=== PATIENT | female | born 1945 | race Caucasian/White ===

== ENCOUNTER 2018-03-16 13:43 | Day surgery (SDC) | payer MEDICARE ==
[2018-03-14 11:23] LABS: BASOPHILS % (AUTO) 0.6 % (0-1); EOSINOPHILS # (AUTO) 0.2 X10'3 (0-0.9); EOSINOPHILS % (AUTO) 3.2 % (0-6); HEMATOCRIT 44.7 % (35.0-45.0); HEMOGLOBIN 15.2 g/dl (12.0-16.0); LYMPHOCYTES # (AUTO) 2.7 X10'3 (1.1-4.8); LYMPHOCYTES % (AUTO) 35.1 % (21-51); MEAN CORPUSCULAR HEMOGLOBIN 31.3 PG (27.0-31.0); MEAN CORPUSCULAR VOLUME 91.9 FL (78-98); MEAN PLATELET VOLUME 6.4 FL (7.4-10.4); MONOCYTES # (AUTO) 0.4 X10'3 (0-0.9); MONOCYTES % (AUTO) 5.7 % (2-12); NEUTROPHILS # (AUTO) 4.3 X10'3 (1.8-7.7); NEUTROPHILS % (AUTO) 55.4 % (42-75); PLATELET COUNT 500 X10'3 (140-440); RED BLOOD COUNT 4.87 X10'6 (4.20-5.60); RED CELL DISTRIBUTION WIDTH 13.5 % (11.5-14.5); WHITE BLOOD COUNT 7.8 X10'3 (4.5-11.0)
[2018-03-14 11:38] LABS: PARTIAL THROMBOPLASTIN TIME 28 SECONDS (22-32); PROTHROMBIN TIME 10.3 SECONDS (9.0-12.0)
[2018-03-14 11:46] LABS: ALBUMIN 3.6 G/DL (3.4-5.0); ANION GAP 8 (8-16); BLOOD UREA NITROGEN 15 MG/DL (7-18); CALCIUM 8.9 MG/DL (8.5-10.1); CHLORIDE 105 MMOL/L (99-107); CREATININE 1.15 MG/DL (0.40-0.90); GLUCOSE 103 MG/DL (70-104); POTASSIUM 3.9 MMOL/L (3.5-5.1); SODIUM 139 MMOL/L (135-145); TOTAL CARBON DIOXIDE 26.1 MMOL/L (24-32); eGFR 46 ML/MIN
[2018-03-16] VITALS (8 sets, daily range): BP systolic 108–133; BP diastolic 50–73
[~2018-03-16] VITALS: Ht 160 cm; Wt 68.4 kg
[~2018-03-16 13:43] MED LIST: LOSA100T13 PO; NOR5T PO; PROG100C6 PO; ROSU10TA PO; ZOLE4INF IV
[2018-03-16] MEDS ORDERED: LORazepam 0.5 MG tablet PO PRN (14:00)
[2018-03-16] MEDS ORDERED: diphenhydrAMINE 25mg capsule PO PRN (14:00)
[2018-03-16] MEDS ORDERED: normal saline 1000ml 1,000 ML IV SCH (14:00)
[2018-03-16] MEDS ORDERED: GABA-532 PO (14:06)
[2018-03-16] MEDS ORDERED: PARO40TA PO (14:06)
[2018-03-16] MEDS ORDERED: TEMA15CA5 PO (14:06)
[2018-03-16] MEDS ORDERED: ROSU40TA PO (14:06)
[2018-03-16] MEDS ORDERED: LOSA100T28 PO (14:06)
[2018-03-16] MEDS ORDERED: midazolam 2 mg/2 ml injection ONE (16:34)
[2018-03-16] MEDS ORDERED: lidocaine 1%/epinephrine 1:100,000 injection 50ml vial ONE (16:34)
[2018-03-16] MEDS ORDERED: iohexol 350MG/ML 100ml bottle IV ONE (16:34)
[2018-03-16] MEDS ORDERED: fentaNYL/PF 50MCG/1 ML 2ML syringe ONE (16:34)
[2018-03-16] MEDS ORDERED: iohexol 350 MG/ML 50ML vial IV ONE (17:21)
[2018-03-16] MEDS ORDERED: ondansetron/PF 4mg/2ml inj IV PRN (18:10)
[2018-03-16] MEDS ORDERED: OXAZEpam 15mg capsule PO PRN (18:10)
[2018-03-16] MEDS ORDERED: HYDROcodone/acetaminophen 10/325mg tab PO PRN (18:10)
[2018-03-16] MEDS ORDERED: proCHLORperazine 10 MG/2 ml inj IV PRN (18:10)
[2018-03-16] MEDS ORDERED: HYDROcodone/acetaminophen 5mg/325mg tablet PO PRN (18:10)
== END 2018-03-16 19:38 | disposition home or self-care (01) ==
LOC: SSTAY O 13:43
PROVIDERS: ATTEND Internal Medicine Interventional Cardiology
DX: I25.810 Atherosclerosis of coronary artery bypass graft(s) without angina pectoris (principal); J44.9 Chronic obstructive pulmonary disease, unspecified; I44.4 Left anterior fascicular block; M79.7 Fibromyalgia; I10 Essential (primary) hypertension; E78.5 Hyperlipidemia, unspecified; K21.9 Gastro-esophageal reflux disease without esophagitis; M06.9 Rheumatoid arthritis, unspecified; I25.2 Old myocardial infarction; Z90.49 Acquired absence of other specified parts of digestive tract; Z87.891 Personal history of nicotine dependence; Z90.13 Acquired absence of bilateral breasts and nipples; Z85.3 Personal history of malignant neoplasm of breast; Z95.1 Presence of aortocoronary bypass graft; Z79.891 Long term (current) use of opiate analgesic; Z79.899 Other long term (current) drug therapy; Z98.890 Other specified postprocedural states
CPT/HCPCS: 36415; 80048; 85025; 85610; 85730; 93005; 93461; 99152; 99153; A6257; C1769; J1644; J2250; J3010; J3490; J7030; Q0163; Q9967; 93459; A4620

== ENCOUNTER 2022-02-20 05:32 | Day surgery (SDC) | payer MEDICARE ==
[2022-02-13 15:41] LABS: BASOPHILS # (AUTO) 0.1 X10'3 (0-0.2); BASOPHILS % (AUTO) 0.8 % (0-1); EOSINOPHILS # (AUTO) 0.2 X10'3 (0-0.9); EOSINOPHILS % (AUTO) 3.5 % (0-6); LYMPHOCYTES % (AUTO) 30.6 % (21-51); MEAN CORPUSCULAR HEMOGLOBIN 30.7 PG (27.0-31.0); MEAN CORPUSCULAR HGB CONC 33.2 g/dL (33.0-36.5); MEAN CORPUSCULAR VOLUME 92.3 FL (78-98); MONOCYTES # (AUTO) 0.4 X10'3 (0-0.9); MONOCYTES % (AUTO) 5.9 % (2-12); NEUTROPHILS # (AUTO) 3.9 X10'3 (1.8-7.7); NEUTROPHILS % (AUTO) 59.2 % (42-75); PRE OP HEMATOCRIT 43.8 % (35.0-45.0); PRE OP HEMOGLOBIN 14.6 g/dL (12.0-16.0); PRE OP PLATELET COUNT 364 X10'3 (140-440); RED BLOOD COUNT 4.75 X10'6 (4.20-5.60); RED CELL DISTRIBUTION WIDTH 12.6 % (11.5-14.5)
[2022-02-13 16:01] LABS: ALBUMIN 3.6 G/DL (3.4-5.0); ALBUMIN/GLOBULIN RATIO 1.2 (1.1-1.5); ALKALINE PHOSPHATASE 77 IU/L (46-116); BLOOD UREA NITROGEN 15 MG/DL (7-18); BUN/CREATININE RATIO 16.1 (6.6-38.0); CALCIUM 8.9 MG/DL (8.5-10.1); CHLORIDE 105 MMOL/L (99-107); CREATININE 0.93 MG/DL (0.40-0.90); PRE OP ALT 20 U/L (30-65); PRE OP ANION GAP 9 (8-16); PRE OP AST 18 U/L (10-37); PRE OP BILIRUB, TOTAL 0.6 MG/DL (0.0-1.0); PRE OP GLUCOSE 141 MG/DL (70-104); PRE OP POTASSIUM 3.4 MMOL/L (3.4-5.1); PRE OP SODIUM 144 MMOL/L (135-145); TOTAL CARBON DIOXIDE 29.8 MMOL/L (24-32); TOTAL PROTEIN 6.7 G/DL (6.4-8.2); eGFR 58 ML/MIN
[~2022-02-20] VITALS: Ht 157.5 cm; Wt 63.5 kg
[2022-02-20 05:30] VITALS: BP 158/92
[~2022-02-20 05:32] MED LIST changes: -NOR5T PO; +PARO40TA PO; -PROG100C6 PO; -ROSU10TA PO; +ROSU40TA PO; +TEMA15CA5 PO; -ZOLE4INF IV; +ceFAZolin inj. 2,000 MG in dextrose 5%-water 100 ML IV ONE; +famotidine 20mg tablet PO ONE; +ringers solution, lacted 1,000 ML IV SCH
[2022-02-20] MEDS ORDERED: BUPIVAcaine/PF 2.5mg/ml (0.25%) 10ml vial ONE (06:46)
[2022-02-20] MEDS ORDERED: LIDOcaine 0.5% (5mg/ml) 50ml vial ONE (06:46)
[2022-02-20] MEDS ORDERED: hydrALAZINE 20mg/ml inj. IV PRN (07:00)
[2022-02-20] MEDS ORDERED: ringers solution, lacted 1,000 ML IV SCH (07:00)
[2022-02-20] MEDS ORDERED: ondansetron/PF 4mg/2ml inj IV PRN (07:00)
[2022-02-20] MEDS ORDERED: morphine 2 MG/ML inj. syringe IV PRN (07:00)
[2022-02-20] MEDS ORDERED: acetaminophen 1,000mg/100ml IV 100 ML IV PRN (07:00)
[2022-02-20] MEDS ORDERED: proCHLORperazine 10 MG/2 ml inj IV PRN (07:00)
[2022-02-20] MEDS ORDERED: morphine 4 MG/ML inj SYRINge IV PRN (07:00)
[2022-02-20] MEDS ORDERED: fentaNYL/PF 50MCG/1 ML 2ML syringe IV PRN ×2 (07:00)
[2022-02-20] MEDS ORDERED: meperidine/PF 25mg/ml syringe IV PRN (07:00)
[2022-02-20] MEDS ORDERED: labetalol 20mg/4ml (5mg/ml) syringe IV PRN (07:00)
[2022-02-20] MEDS ORDERED: fentaNYL/PF 50MCG/1 ML 2ML syringe ONE (07:02)
[2022-02-20] MEDS ORDERED: midazolam 1 mg/ML 2ml injection ONE (07:05)
[2022-02-20 07:36] VITALS: BP 158/93
--- NOTE | 2022-02-20 07:36 | NUR ---
Received from OR via [facility] , accompanied by Anesthesiologist ALIS and report given by Anesthesiolgist. PATIENT WITH 20G PIV IN LRFT UE RUNNING LR AT 100. DENIES PAIN LEFT ELBOW WRAPPED IN LANE BANDAGE THAT IS CDI. + RADIAL PULSE PRESENT. NO DRAINAGE TO DRESSING VSS. Addendum: 02/20/22 at 8905 by Nehemias Stanley RN, RN Amended: Links added.
[2022-02-20] MEDS ORDERED: propofol inj 20 ML IV ONE (07:39)
[2022-02-20 07:40] VITALS: BP 150/81
[2022-02-20 07:50] VITALS: BP 162/98
[2022-02-20 08:00] VITALS: BP 151/90
[2022-02-20 08:10] VITALS: BP 148/88
--- NOTE | 2022-02-20 08:16 | NUR ---
ALL DISCHARGE CRITERIA HAS BEEN MET. VSS, PAIN AT A TOLERABLE LEVEL, VOIDING AND ABLE TO SAFELY AMBULATE AND TRANSFER SELF. IV TAKEN OUT WITHOUT ANY COMPLICATIONS. ALL DISCHARGE INSTRUCTIONS COVERED WITH PATIENT AND ALL QUESTIONS ANSWERED. PATIENT TAKEN OUT VIA WHEELCHAIR TO PERSONAL VEHICLE WHERE FAMILY/FRIEND DROVE PATIENT HOME. AMBULATED, DRANK FLUIDS AND VOIDED. DAUGHTER BRAULIO COMING TO TAKE PATIENT HOME. Addendum: 02/20/22 at 0820 by Nehemias Stanley RN, RN Amended: Links added.
== END 2022-02-20 08:16 | disposition home or self-care (01) ==
LOC: PAS 05:32
PROVIDERS: ATTEND Orthopaedic Surgery Hand Surgery
DX: G56.22 Lesion of ulnar nerve, left upper limb (principal); M19.011 Primary osteoarthritis, right shoulder; M19.071 Primary osteoarthritis, right ankle and foot; M16.11 Unilateral primary osteoarthritis, right hip; J45.909 Unspecified asthma, uncomplicated; I10 Essential (primary) hypertension; I25.2 Old myocardial infarction; Z79.01 Long term (current) use of anticoagulants; Z79.899 Other long term (current) drug therapy; Z90.49 Acquired absence of other specified parts of digestive tract; Z90.10 Acquired absence of unspecified breast and nipple; Z98.890 Other specified postprocedural states; Z87.891 Personal history of nicotine dependence; Z95.1 Presence of aortocoronary bypass graft; Z85.3 Personal history of malignant neoplasm of breast
CPT/HCPCS: 36415; 64718; 80053; 82948; 85025; 93005; A6222; J0690; J2250; J2704; J3010; J3490; J7030; J7060; J7120; Z7506; Z7512; A4215; A6449

== ENCOUNTER 2022-12-31 12:51 | Emergency (ER) | payer MEDICARE ==
[~2022-12-31] VITALS: Ht 152.4 cm; Wt 62.3 kg
[~2022-12-31 12:51] MED LIST changes: +PARO-154 PO; -PARO40TA PO; -ceFAZolin inj. 2,000 MG in dextrose 5%-water 100 ML IV ONE; -famotidine 20mg tablet PO ONE; -ringers solution, lacted 1,000 ML IV SCH
[2022-12-31 13:18] LABS: BASOPHILS # (AUTO) 0.1 X10'3 (0-0.2); BASOPHILS % (AUTO) 0.7 % (0-1); EOSINOPHILS # (AUTO) 0.3 X10'3 (0-0.9); EOSINOPHILS % (AUTO) 4.1 % (0-6); HEMATOCRIT 45.6 % (35.0-45.0); HEMOGLOBIN 14.9 g/dl (12.0-16.0); LYMPHOCYTES # (AUTO) 2.4 X10'3 (1.1-4.8); LYMPHOCYTES % (AUTO) 28.6 % (21-51); MEAN CORPUSCULAR HEMOGLOBIN 30.8 PG (27.0-31.0); MEAN CORPUSCULAR HGB CONC 32.8 g/dL (33.0-36.5); MEAN CORPUSCULAR VOLUME 93.9 FL (78-98); MEAN PLATELET VOLUME 6.8 FL (7.4-10.4); MONOCYTES # (AUTO) 0.6 X10'3 (0-0.9); MONOCYTES % (AUTO) 6.7 % (2-12); NEUTROPHILS # (AUTO) 5.1 X10'3 (1.8-7.7); NEUTROPHILS % (AUTO) 59.9 % (42-75); PLATELET COUNT 337 X10'3 (140-440); RED BLOOD COUNT 4.85 X10'6 (4.20-5.60); RED CELL DISTRIBUTION WIDTH 13.7 % (11.5-14.5); WHITE BLOOD COUNT 8.5 X10'3 (4.5-11.0)
[2022-12-31 13:33] LABS: APTT 28 SECONDS (22-32)
[2022-12-31 13:35] LABS: ALANINE AMINOTRANSFERASE 23 U/L (12-78); ALBUMIN 3.9 G/DL (3.4-5.0); ALBUMIN/GLOBULIN RATIO 1.2 (1.1-1.5); ALKALINE PHOSPHATASE 83 IU/L (46-116); ANION GAP 8 (8-16); ASPARTATE AMINO TRANSFERASE 25 U/L (10-37); BILIRUBIN,TOTAL 0.6 MG/DL (0.1-1.0); BLOOD UREA NITROGEN 19 MG/DL (7-18); BUN/CREATININE RATIO 20.2 (10.0-20.0); CALCIUM 9.7 MG/DL (8.5-10.1); CHLORIDE 104 MMOL/L (99-107); CREATININE 0.94 MG/DL (0.40-0.90); GLUCOSE 92 MG/DL (70-104); POTASSIUM 4.1 MMOL/L (3.5-5.1); SODIUM 142 MMOL/L (135-145); TOTAL CARBON DIOXIDE 29.6 MMOL/L (24-32); TOTAL PROTEIN 7.1 G/DL (6.4-8.2); eGFR 57 ML/MIN
[2022-12-31 13:42] LABS: MAGNESIUM 2.2 MG/DL (1.5-2.4)
[2022-12-31] MEDS ORDERED: NITR0.4T51 SL (16:20)
[2022-12-31 16:26] VITALS: BP 173/99
== END 2022-12-31 16:30 | disposition home or self-care (01) ==
LOC: ER 12:51
DX: R07.89 Other chest pain (principal); I10 Essential (primary) hypertension; E78.00 Pure hypercholesterolemia, unspecified; J45.909 Unspecified asthma, uncomplicated; K21.9 Gastro-esophageal reflux disease without esophagitis; Z90.49 Acquired absence of other specified parts of digestive tract
CPT/HCPCS: 36415; 71045; 80053; 83735; 83880; 84484; 85025; 85610; 85730; 93005; 99285

== ENCOUNTER 2023-07-26 10:54 | Outpatient (CLI) | payer MEDICARE ==
[~2023-07-26 10:54] MED LIST changes: +IODIXANOL 320 MG/ML INFUS..BTL 100ML IV ONE
[2023-07-26 11:45] LABS: APTT 28 SECONDS (22-32); PROTHROMBIN TIME 10.6 SECONDS (9.0-12.0)
[2023-07-26 11:48] LABS: BASOPHILS # (AUTO) 0.1 X10'3 (0-0.2); BASOPHILS % (AUTO) 0.9 % (0-1); EOSINOPHILS # (AUTO) 0.4 X10'3 (0-0.9); EOSINOPHILS % (AUTO) 4.8 % (0-6); HEMATOCRIT 46.1 % (35.0-45.0); HEMOGLOBIN 15.6 g/dl (12.0-16.0); LYMPHOCYTES # (AUTO) 2.3 X10'3 (1.1-4.8); LYMPHOCYTES % (AUTO) 28.7 % (21-51); MEAN CORPUSCULAR HEMOGLOBIN 31.2 PG (27.0-31.0); MEAN CORPUSCULAR HGB CONC 33.8 g/dL (33.0-36.5); MEAN CORPUSCULAR VOLUME 92.2 FL (78-98); MONOCYTES # (AUTO) 0.6 X10'3 (0-0.9); MONOCYTES % (AUTO) 6.7 % (2-12); NEUTROPHILS # (AUTO) 4.8 X10'3 (1.8-7.7); NEUTROPHILS % (AUTO) 58.9 % (42-75); PLATELET COUNT 393 X10'3 (140-440); RED BLOOD COUNT 4.99 X10'6 (4.20-5.60); RED CELL DISTRIBUTION WIDTH 13.6 % (11.5-14.5); WHITE BLOOD COUNT 8.2 X10'3 (4.5-11.0)
[2023-07-26 11:59] LABS: ALANINE AMINOTRANSFERASE 28 U/L (12-78); ALBUMIN 3.8 G/DL (3.4-5.0); ALKALINE PHOSPHATASE 89 IU/L (46-116); ANION GAP 8 (8-16); ASPARTATE AMINO TRANSFERASE 24 U/L (10-37); BILIRUBIN,TOTAL 0.5 MG/DL (0.1-1.0); BLOOD UREA NITROGEN 16 MG/DL (7-18); BUN/CREATININE RATIO 14.3 (10.0-20.0); CALCIUM 9.2 MG/DL (8.5-10.1); CHLORIDE 105 MMOL/L (99-107); CREATININE 1.12 MG/DL (0.40-0.90); GLUCOSE 100 MG/DL (70-104); POTASSIUM 3.5 MMOL/L (3.5-5.1); SODIUM 138 MMOL/L (135-145); TOTAL CARBON DIOXIDE 25.5 MMOL/L (24-32); TOTAL PROTEIN 7.7 G/DL (6.4-8.2); eGFR 47 ML/MIN
== END 2023-07-26 23:59 | disposition home or self-care (01) ==
LOC: RAD 10:54
PROVIDERS: ATTEND Student in an Organized Health Care Education/Training Program
DX: I34.81 Nonrheumatic mitral (valve) annulus calcification (principal); J43.2 Centrilobular emphysema; I70.0 Atherosclerosis of aorta; I48.92 Unspecified atrial flutter; I48.91 Unspecified atrial fibrillation; M47.9 Spondylosis, unspecified; Z98.82 Breast implant status; Z95.1 Presence of aortocoronary bypass graft
CPT/HCPCS: 36415; 75572; 80053; 85025; 85610; 85730; J3490; Q9967

== ENCOUNTER 2024-07-13 05:05 | Inpatient (IN) | payer MEDICARE ==
[~2024-07-13] VITALS: Ht 152.4 cm; Wt 63.6 kg
[~2024-07-13 05:05] MED LIST changes: -IODIXANOL 320 MG/ML INFUS..BTL 100ML IV ONE
[2024-07-13 05:33] LABS: BASOPHILS % (AUTO) 0.2 % (0-1); EOSINOPHILS # (AUTO) 0.1 X10'3 (0-0.9); EOSINOPHILS % (AUTO) 0.3 % (0-6); HEMATOCRIT 47.8 % (35.0-45.0); HEMOGLOBIN 16.4 g/dl (12.0-16.0); LYMPHOCYTES # (AUTO) 1.2 X10'3 (1.1-4.8); LYMPHOCYTES % (AUTO) 5.9 % (21-51); MEAN CORPUSCULAR HEMOGLOBIN 31.4 PG (27.0-31.0); MEAN CORPUSCULAR HGB CONC 34.3 g/dL (33.0-36.5); MEAN CORPUSCULAR VOLUME 91.5 FL (78-98); MEAN PLATELET VOLUME 7.4 FL (7.4-10.4); MONOCYTES # (AUTO) 0.7 X10'3 (0-0.9); MONOCYTES % (AUTO) 3.5 % (2-12); NEUTROPHILS # (AUTO) 18.2 X10'3 (1.8-7.7); NEUTROPHILS % (AUTO) 90.1 % (42-75); PLATELET COUNT 358 X10'3 (140-440); RED BLOOD COUNT 5.23 X10'6 (4.20-5.60); WHITE BLOOD COUNT 20.1 X10'3 (4.5-11.0)
[2024-07-13] MEDS: normal saline 1000ml 1,000 ML IV ONE (05:34)
[2024-07-13] MEDS: ondansetron/PF 4mg/2ml inj IV ONE (05:46)
[2024-07-13] MEDS: acetaminophen 325mg tablet PO ONE (05:48)
[2024-07-13 05:51] LABS: ALANINE AMINOTRANSFERASE 20 U/L (12-78); ALBUMIN 3.5 G/DL (3.4-5.0); ALBUMIN/GLOBULIN RATIO 0.9 (1.1-1.5); ALKALINE PHOSPHATASE 86 IU/L (46-116); ANION GAP 11 (8-16); ASPARTATE AMINO TRANSFERASE 21 U/L (10-37); BLOOD UREA NITROGEN 19 MG/DL (7-18); BUN/CREATININE RATIO 14.1 (10.0-20.0); CALCIUM 9.3 MG/DL (8.5-10.1); CHLORIDE 103 MMOL/L (99-107); CREATININE 1.35 MG/DL (0.40-0.90); GLUCOSE 158 MG/DL (70-104); LIPASE 43 U/L (16-77); POTASSIUM 3.7 MMOL/L (3.5-5.1); SODIUM 138 MMOL/L (135-145); TOTAL CARBON DIOXIDE 24.3 MMOL/L (24-32); TOTAL PROTEIN 7.6 G/DL (6.4-8.2); eCRCL 24 ML/MIN; eGFR 38 ML/MIN
[2024-07-13] MEDS: normal saline 1000ml 1,000 ML IVB ONE (08:11)
[2024-07-13] MEDS ORDERED: BUDE10.22 PO (09:11)
[2024-07-13] MEDS ORDERED: PARO10TA4 PO (09:11)
[2024-07-13] MEDS ORDERED: METO25TA6 PO (09:11)
[2024-07-13] MEDS ORDERED: APIX5TAB3 PO (09:11)
[2024-07-13] MEDS: diltiazem 5mg/ml 5ml inj. IV ONE (09:30)
[2024-07-13 09:39] LABS: BILIRUBIN,URINE NEGATIVE (Neg); CLARITY,URINE SLIGHTLY CLOUDY (Clear); COLOR,URINE YELLOW (Yellow); GLUCOSE, URINE NEGATIVE (Neg); KETONES,URINE NEGATIVE (Neg); LEUKOCYTE ESTERASE ,URINE SMALL (Neg); NITRITES, URINE NEGATIVE (Neg); OCCULT BLOOD,URINE SMALL (Neg); PROTEIN,URINE NEGATIVE (Neg); UROBILINOGEN,URINE 0.2 E.U/dL (0.2-1.0)
[2024-07-13 09:47] LABS: UA COLLECTION TYPE CLN CATCH MIDSTREAM
[2024-07-13 09:48] LABS: AMORPHOUS URATES 1+; BACTERIA,URINE NONE SEEN /HPF (Neg); RBC,URINE 0-2 /HPF (0-2); SQUAMOUS EPITHELIAL CELL,UR FEW /LPF (FEW); WBC,URINE 0-4 /HPF (0-4)
[2024-07-13] MEDS: CefTRIAXone/D5W-Rocephin 1gm 50 ML IV ONE (11:56)
[2024-07-13 12:29] LABS: C DIFF ANTIGEN NEGATIVE (NEGATIVE); C DIFF SPECIMEN=DIARRHEA? ACCEPTABLE; C DIFFICILE TOXINS A&B NEGATIVE (Neg)
[2024-07-13] MEDS ORDERED: ondansetron/PF 4mg/2ml inj IV PRN (12:30)
[2024-07-13] MEDS ORDERED: magnesium sulf-water 2g/50mL 50 ML IV PRN (12:30)
[2024-07-13] MEDS ORDERED: morphine 2 MG/ML inj. syringe IV PRN (12:30)
[2024-07-13] MEDS ORDERED: magnesium hydroxide 30ml (MOM) UD suspension PO PRN (12:30)
[2024-07-13] MEDS ORDERED: magnesium Cl slow-release 64mg tablet PO PRN (12:30)
[2024-07-13] MEDS ORDERED: HYDROcodone/acetaminophen 10/325mg tab PO PRN (12:30)
[2024-07-13] MEDS ORDERED: potassium Cl 40MEQ/1/2NS 520ml 520 ML IV PRN (12:30)
[2024-07-13] MEDS ORDERED: potassium Cl 20 mEq SR tablet PO PRN ×2 (12:30)
[2024-07-13] MEDS ORDERED: magnesium sulf-water 4G/100mL 100 ML IV PRN (12:30)
[2024-07-13] MEDS: normal saline 1000ML IV soln IVB ONE (12:39)
[2024-07-13] MEDS ORDERED: ZALE10CA PO (12:58)
[2024-07-13] MEDS: potassium Cl 20mEq in NS 1,000 ML IV SCH (14:56)
[2024-07-13 17:00] VITALS: BP 142/62; PULSE 72; RESP 16; TEMP 96.8; O2SAT 96
[2024-07-13 19:00] VITALS: BP 142/62; PULSE 72; RESP 20; TEMP 96.8; O2SAT 96
[2024-07-13] MEDS: K and/or MAG REPLACEMENT MC SCH (19:14)
[2024-07-13] MEDS: docusate sod 100mg capsule PO SCH (19:16)
[2024-07-13 20:00] VITALS: RESP 20; O2SAT 96
[2024-07-13 22:00] VITALS: BP 129/79; PULSE 100; RESP 18; TEMP 98.4; O2SAT 94
[2024-07-14 05:57] LABS: BASOPHILS % (AUTO) 0.4 % (0-1); EOSINOPHILS # (AUTO) 0.3 X10'3 (0-0.9); EOSINOPHILS % (AUTO) 3.4 % (0-6); HEMATOCRIT 36.2 % (35.0-45.0); HEMOGLOBIN 12.2 g/dl (12.0-16.0); LYMPHOCYTES # (AUTO) 1.7 X10'3 (1.1-4.8); LYMPHOCYTES % (AUTO) 19.7 % (21-51); MEAN CORPUSCULAR HGB CONC 33.7 g/dL (33.0-36.5); MEAN CORPUSCULAR VOLUME 91.9 FL (78-98); MEAN PLATELET VOLUME 7.4 FL (7.4-10.4); MONOCYTES # (AUTO) 0.5 X10'3 (0-0.9); MONOCYTES % (AUTO) 5.5 % (2-12); PLATELET COUNT 231 X10'3 (140-440); RED BLOOD COUNT 3.93 X10'6 (4.20-5.60); RED CELL DISTRIBUTION WIDTH 14.3 % (11.5-14.5); WHITE BLOOD COUNT 8.4 X10'3 (4.5-11.0)
[2024-07-14 06:25] VITALS: BP 146/75; PULSE 92; RESP 17; TEMP 97.3; O2SAT 94
[2024-07-14 06:27] LABS: ALANINE AMINOTRANSFERASE 7 U/L (12-78); ALBUMIN 2.2 G/DL (3.4-5.0); ALBUMIN/GLOBULIN RATIO 0.7 (1.1-1.5); ALKALINE PHOSPHATASE 54 IU/L (46-116); ANION GAP 8 (8-16); ASPARTATE AMINO TRANSFERASE 16 U/L (10-37); BILIRUBIN,TOTAL 0.4 MG/DL (0.1-1.0); BLOOD UREA NITROGEN 12 MG/DL (7-18); CALCIUM 8.1 MG/DL (8.5-10.1); CHLORIDE 114 MMOL/L (99-107); GLUCOSE 93 MG/DL (70-104); MAGNESIUM 1.9 MG/DL (1.5-2.4); SODIUM 144 MMOL/L (135-145); TOTAL CARBON DIOXIDE 21.8 MMOL/L (24-32); TOTAL PROTEIN 5.3 G/DL (6.4-8.2); eCRCL 40 ML/MIN; eGFR 69 ML/MIN
[2024-07-14] MEDS: CefTRIAXone/D5W-Rocephin 1gm 50 ML IV SCH (08:14)
[2024-07-14] MEDS: enoxaparin 40mg/0.4ml syringe SUBCUT SCH (08:15)
[2024-07-14] MEDS: HYDROcodone/acetaminophen 5mg/325mg tablet PO PRN (08:24)
[2024-07-14 10:00] VITALS: BP 155/73; PULSE 79; RESP 20; TEMP 97.8; O2SAT 93
[2024-07-14] MEDS: metoprolol tartrate 25mg tablet PO SCH (12:16)
[2024-07-14 13:41] VITALS: PULSE 78; RESP 17; O2SAT 94
[2024-07-14] MEDS: albuterol 2.5 MG/3 ML nebule NEB SCH (14:00)
[2024-07-14] MEDS: mag hydrox/Alum hydrox/simeth 30ml oral suspension PO PRN (17:09)
[2024-07-14] MEDS: acetaminophen 325mg tablet PO PRN (17:37)
[2024-07-14 20:00] VITALS: RESP 18; O2SAT 95
[2024-07-14] MEDS: budesonide 0.5mg/2ml UD nebule IH SCH (20:00)
[2024-07-14 20:11] VITALS: PULSE 70; RESP 16; O2SAT 93
[2024-07-14] MEDS: apixaban 5mg tablet PO SCH (20:14)
[2024-07-14] MEDS: zolpidem 5mg tablet PO SCH (20:29)
[2024-07-14 23:10] LABS: HEMATOCRIT 43.5 % (35.0-45.0); HEMOGLOBIN 14.7 g/dl (12.0-16.0); MEAN CORPUSCULAR HEMOGLOBIN 31.4 PG (27.0-31.0); MEAN CORPUSCULAR HGB CONC 33.8 g/dL (33.0-36.5); MEAN CORPUSCULAR VOLUME 92.8 FL (78-98); MEAN PLATELET VOLUME 7.1 FL (7.4-10.4); PLATELET COUNT 266 X10'3 (140-440); RED BLOOD COUNT 4.68 X10'6 (4.20-5.60); RED CELL DISTRIBUTION WIDTH 14.1 % (11.5-14.5); WHITE BLOOD COUNT 10.3 X10'3 (4.5-11.0)
[2024-07-15] VITALS (8 sets, daily range): BP systolic 137–179; BP diastolic 67–94; PULSE 78–125; RESP 16–20; TEMP 97.3–98.6; O2SAT 90–97
[2024-07-15 00:33] LABS: OCCULT BLOOD STOOL POSITIVE (Neg)
[2024-07-15 07:47] LABS: BASOPHILS % (AUTO) 0.6 % (0-1); EOSINOPHILS # (AUTO) 0.3 X10'3 (0-0.9); EOSINOPHILS % (AUTO) 4.5 % (0-6); HEMOGLOBIN 13.7 g/dl (12.0-16.0); LYMPHOCYTES # (AUTO) 1.5 X10'3 (1.1-4.8); LYMPHOCYTES % (AUTO) 19.7 % (21-51); MEAN CORPUSCULAR HEMOGLOBIN 30.8 PG (27.0-31.0); MEAN CORPUSCULAR HGB CONC 33.5 g/dL (33.0-36.5); MEAN CORPUSCULAR VOLUME 91.9 FL (78-98); MEAN PLATELET VOLUME 7.5 FL (7.4-10.4); MONOCYTES # (AUTO) 0.4 X10'3 (0-0.9); MONOCYTES % (AUTO) 5.4 % (2-12); NEUTROPHILS # (AUTO) 5.2 X10'3 (1.8-7.7); NEUTROPHILS % (AUTO) 69.8 % (42-75); PLATELET COUNT 258 X10'3 (140-440); RED BLOOD COUNT 4.46 X10'6 (4.20-5.60); WHITE BLOOD COUNT 7.5 X10'3 (4.5-11.0)
[2024-07-15] MEDS: atorvastatin 20mg tablet PO SCH (08:17)
[2024-07-15 08:41] LABS: ALANINE AMINOTRANSFERASE 15 U/L (12-78); ALBUMIN 2.8 G/DL (3.4-5.0); ALBUMIN/GLOBULIN RATIO 0.8 (1.1-1.5); ALKALINE PHOSPHATASE 67 IU/L (46-116); ANION GAP 8 (8-16); ASPARTATE AMINO TRANSFERASE 20 U/L (10-37); BILIRUBIN,TOTAL 0.5 MG/DL (0.1-1.0); BLOOD UREA NITROGEN 8 MG/DL (7-18); BUN/CREATININE RATIO 10.3 (10.0-20.0); CALCIUM 8.5 MG/DL (8.5-10.1); CHLORIDE 109 MMOL/L (99-107); CREATININE 0.78 MG/DL (0.40-0.90); GLUCOSE 82 MG/DL (70-104); MAGNESIUM 1.9 MG/DL (1.5-2.4); POTASSIUM 3.6 MMOL/L (3.5-5.1); SODIUM 144 MMOL/L (135-145); TOTAL PROTEIN 6.3 G/DL (6.4-8.2); eCRCL 41 ML/MIN; eGFR 71 ML/MIN
[2024-07-15] MEDS ORDERED: CARV6.253 PO (12:20)
[2024-07-15] MEDS ORDERED: diphenoxylate/atropine tablet (Lomotil) PO PRN (12:20)
[2024-07-15] MEDS: carvedilol 6.25mg tablet PO SCH (19:56)
[2024-07-15] MEDS: acetaminophen 325mg tablet PO PRN (22:54)
[2024-07-16 06:00] VITALS: BP 151/81; PULSE 74; RESP 14; TEMP 97.8; O2SAT 95
[2024-07-16] MEDS ORDERED: ELUX75TA PO (10:30)
[2024-07-16] MEDS ORDERED: chloestyramine/aspartame 4gm packet PO SCH (11:00)
[2024-07-19] MEDS ORDERED: CARV6.253 PO (18:47)
[2024-07-21] MEDS ORDERED: VANC125C5 PO (10:44)
== END 2024-07-16 11:53 | disposition home or self-care (01) | DRG 385 ==
LOC: ER 05:05 → ED HOLD 12:34 → SUR 3N 16:50
PROVIDERS: ADMIT Internal Medicine; ATTEND Internal Medicine
DX: K51.90 Ulcerative colitis, unspecified, without complications (principal); N17.0 Acute kidney failure with tubular necrosis; N39.0 Urinary tract infection, site not specified; I25.10 Atherosclerotic heart disease of native coronary artery without angina pectoris; J45.909 Unspecified asthma, uncomplicated; E86.0 Dehydration; F41.9 Anxiety disorder, unspecified; E78.00 Pure hypercholesterolemia, unspecified; D75.1 Secondary polycythemia; I10 Essential (primary) hypertension; K21.9 Gastro-esophageal reflux disease without esophagitis; F32.A Depression, unspecified; I48.91 Unspecified atrial fibrillation; Z79.01 Long term (current) use of anticoagulants; Z79.899 Other long term (current) drug therapy; Z90.13 Acquired absence of bilateral breasts and nipples; Z95.1 Presence of aortocoronary bypass graft; Z85.3 Personal history of malignant neoplasm of breast; Z95.0 Presence of cardiac pacemaker; Z90.49 Acquired absence of other specified parts of digestive tract; Z87.891 Personal history of nicotine dependence
CPT/HCPCS: 36415; 71045; 80053; 81001; 82272; 83605; 83690; 83735; 84145; 85025; 85027; 87040; 87045; 87046; 87081; 87088; 87324; 87449; 87502; 87503; 89055; 93005; 94640; 94760; 96365; 96375; 99285; A4615; A6258; G0378; J0696; J1650; J2405; J3480; J3490; J7030

== ENCOUNTER 2024-08-05 10:38 | Inpatient (IN) | payer MEDICARE ==
[~2024-08-05] VITALS: Ht 152.4 cm; Wt 63.3 kg
[2024-08-05] VITALS (7 sets, daily range): BP systolic 116–141; BP diastolic 56–64; PULSE 84–102; RESP 14–24; TEMP 97.6–98.6; O2SAT 92–98
[~2024-08-05 10:38] MED LIST changes: +APIX5TAB3 PO; +BUDE10.22 PO; +CARV6.253 PO; -LOSA100T13 PO; -PARO-154 PO; +PARO10TA4 PO; -TEMA15CA5 PO
[2024-08-05] MEDS: ondansetron/PF 4mg/2ml inj IV ONE (11:15)
[2024-08-05] MEDS: metoprolol tartrate 1mg/ml inj IV ONE (11:29)
[2024-08-05 11:41] LABS: BASOPHILS % (AUTO) 0.3 % (0-1); EOSINOPHILS # (AUTO) 0.1 X10'3 (0-0.9); EOSINOPHILS % (AUTO) 0.4 % (0-6); HEMOGLOBIN 14.8 g/dl (12.0-16.0); LYMPHOCYTES # (AUTO) 1.1 X10'3 (1.1-4.8); LYMPHOCYTES % (AUTO) 6.3 % (21-51); MEAN CORPUSCULAR HGB CONC 33.7 g/dL (33.0-36.5); MEAN CORPUSCULAR VOLUME 91.8 FL (78-98); MEAN PLATELET VOLUME 7.8 FL (7.4-10.4); MONOCYTES # (AUTO) 1.1 X10'3 (0-0.9); NEUTROPHILS # (AUTO) 15.7 X10'3 (1.8-7.7); PLATELET COUNT 352 X10'3 (140-440); RED BLOOD COUNT 4.79 X10'6 (4.20-5.60); RED CELL DISTRIBUTION WIDTH 15.1 % (11.5-14.5); WHITE BLOOD COUNT 18.1 X10'3 (4.5-11.0)
[2024-08-05 11:50] LABS: ALANINE AMINOTRANSFERASE 22 U/L (12-78); ALBUMIN 3.3 G/DL (3.4-5.0); ALBUMIN/GLOBULIN RATIO 0.9 (1.1-1.5); ALKALINE PHOSPHATASE 88 IU/L (46-116); ANION GAP 8 (8-16); ASPARTATE AMINO TRANSFERASE 17 U/L (10-37); BILIRUBIN,TOTAL 0.8 MG/DL (0.1-1.0); BLOOD UREA NITROGEN 13 MG/DL (7-18); CALCIUM 8.6 MG/DL (8.5-10.1); CHLORIDE 106 MMOL/L (99-107); GLUCOSE 131 MG/DL (70-104); POTASSIUM 3.5 MMOL/L (3.5-5.1); PRO BRAIN NATRIURETIC PEPTIDE 2108 PG/ML (0-450); SODIUM 139 MMOL/L (135-145); TOTAL CARBON DIOXIDE 24.8 MMOL/L (24-32); TOTAL PROTEIN 6.9 G/DL (6.4-8.2); eCRCL 32 ML/MIN; eGFR 53 ML/MIN
[2024-08-05] MEDS ORDERED: iohexol 300mg/ml 100ml inj. ONE (12:26)
[2024-08-05] MEDS: apixaban 2.5mg tablet PO STA (13:19)
[2024-08-05] MEDS: metoprolol tartrate 25mg tablet PO ONE (13:20)
[2024-08-05] MEDS: vancomycin 125 MG/5 ML UD oral SOLN.RECON 5mL oral syringe (FIRVANQ) PO STA (13:21)
[2024-08-05] MEDS ORDERED: mag hydrox/Alum hydrox/simeth 30ml oral suspension PO PRN (13:55)
[2024-08-05] MEDS ORDERED: potassium Cl 20 mEq SR tablet PO PRN ×2 (13:55)
[2024-08-05] MEDS ORDERED: morphine 2 MG/ML inj. syringe IV PRN ×2 (13:55)
[2024-08-05] MEDS ORDERED: ondansetron/PF 4mg/2ml inj IV PRN (13:55)
[2024-08-05] MEDS ORDERED: magnesium hydroxide 30ml (MOM) UD suspension PO PRN (13:55)
[2024-08-05] MEDS ORDERED: magnesium sulf-water 4G/100mL 100 ML IV PRN (13:55)
[2024-08-05] MEDS ORDERED: HYDROcodone/acetaminophen 5mg/325mg tablet PO PRN (13:55)
[2024-08-05] MEDS ORDERED: magnesium Cl slow-release 64mg tablet PO PRN (13:55)
[2024-08-05] MEDS ORDERED: HYDROcodone/acetaminophen 10/325mg tab PO PRN (13:55)
[2024-08-05] MEDS ORDERED: magnesium sulf-water 2g/50mL 50 ML IV PRN (13:55)
[2024-08-05] MEDS ORDERED: potassium Cl 40MEQ/1/2NS 520ml 520 ML IV PRN (13:55)
[2024-08-05] MEDS ORDERED: acetaminophen 325mg tablet PO PRN ×2 (13:55)
[2024-08-05 14:41] LABS: C-REACTIVE PROTEIN 1.27 MG/DL (0.0-0.5)
[2024-08-05] MEDS: normal saline 1000ml 1,000 ML IV ONE (14:56)
[2024-08-05] MEDS: normal saline 1000ml 1,000 ML IV SCH (15:05)
[2024-08-05] MEDS ORDERED: ipratropium 0.5 MG/2.5ML nebule IH PRN (16:25)
[2024-08-05] MEDS ORDERED: LOP12.5T PO (16:39)
[2024-08-05] MEDS: K and/or MAG REPLACEMENT MC SCH (20:00)
[2024-08-05] MEDS: docusate sod 100mg capsule PO SCH (20:00)
[2024-08-05] MEDS: apixaban 5mg tablet PO SCH (21:26)
[2024-08-05] MEDS: metoprolol tartrate 50mg tablet PO SCH (21:28)
[2024-08-06] VITALS (10 sets, daily range): BP systolic 116–168; BP diastolic 48–82; PULSE 65–96; RESP 14–27; TEMP 96.4–97.9; O2SAT 94–98
[2024-08-06 07:48] LABS: BASOPHILS # (AUTO) 0.1 X10'3 (0-0.2); BASOPHILS % (AUTO) 0.8 % (0-1); EOSINOPHILS # (AUTO) 0.3 X10'3 (0-0.9); HEMATOCRIT 38.1 % (35.0-45.0); HEMOGLOBIN 12.8 g/dl (12.0-16.0); LYMPHOCYTES # (AUTO) 2.7 X10'3 (1.1-4.8); LYMPHOCYTES % (AUTO) 31.3 % (21-51); MEAN CORPUSCULAR HEMOGLOBIN 30.9 PG (27.0-31.0); MEAN CORPUSCULAR HGB CONC 33.7 g/dL (33.0-36.5); MEAN CORPUSCULAR VOLUME 91.7 FL (78-98); MEAN PLATELET VOLUME 7.7 FL (7.4-10.4); MONOCYTES # (AUTO) 0.8 X10'3 (0-0.9); MONOCYTES % (AUTO) 9.4 % (2-12); NEUTROPHILS # (AUTO) 4.8 X10'3 (1.8-7.7); NEUTROPHILS % (AUTO) 55.5 % (42-75); PLATELET COUNT 277 X10'3 (140-440); RED BLOOD COUNT 4.15 X10'6 (4.20-5.60); RED CELL DISTRIBUTION WIDTH 14.8 % (11.5-14.5); WHITE BLOOD COUNT 8.7 X10'3 (4.5-11.0)
[2024-08-06 08:14] LABS: ALANINE AMINOTRANSFERASE 13 U/L (12-78); ALBUMIN 2.6 G/DL (3.4-5.0); ALBUMIN/GLOBULIN RATIO 0.8 (1.1-1.5); ALKALINE PHOSPHATASE 67 IU/L (46-116); ANION GAP 7 (8-16); ASPARTATE AMINO TRANSFERASE 14 U/L (10-37); BILIRUBIN,TOTAL 0.6 MG/DL (0.1-1.0); BLOOD UREA NITROGEN 15 MG/DL (7-18); BUN/CREATININE RATIO 16.5 (10.0-20.0); C-REACTIVE PROTEIN 6.36 MG/DL (0.0-0.5); CHLORIDE 111 MMOL/L (99-107); CREATININE 0.91 MG/DL (0.40-0.90); GLUCOSE 57 MG/DL (70-104); MAGNESIUM 1.9 MG/DL (1.5-2.4); POTASSIUM 3.6 MMOL/L (3.5-5.1); SODIUM 143 MMOL/L (135-145); TOTAL CARBON DIOXIDE 25.1 MMOL/L (24-32); TOTAL PROTEIN 5.8 G/DL (6.4-8.2); eCRCL 35 ML/MIN; eGFR 59 ML/MIN
[2024-08-06 11:58] LABS: C DIFF ANTIGEN NEGATIVE (NEGATIVE); C DIFF SPECIMEN=DIARRHEA? ACCEPTABLE; C DIFFICILE TOXINS A&B NEGATIVE (Neg)
[2024-08-06] MEDS: metoprolol tartrate 25mg tablet PO SCH (21:42)
[2024-08-07] MEDS ORDERED: lactobacillus rhamnosus 10,000 MMU CELLS/CAPSULE PO SCH ×2 (00:30→12:30)
[2024-08-07] MEDS: LORazepam 0.5 MG tablet PO ONE (00:43)
[2024-08-07 03:17] VITALS: BP 148/62; PULSE 66; RESP 16; TEMP 97.6; O2SAT 96
[2024-08-07 07:56] LABS: BASOPHILS # (AUTO) 0.1 X10'3 (0-0.2); BASOPHILS % (AUTO) 0.7 % (0-1); EOSINOPHILS # (AUTO) 0.5 X10'3 (0-0.9); EOSINOPHILS % (AUTO) 6.9 % (0-6); HEMATOCRIT 38.4 % (35.0-45.0); HEMOGLOBIN 12.9 g/dl (12.0-16.0); LYMPHOCYTES # (AUTO) 2.5 X10'3 (1.1-4.8); LYMPHOCYTES % (AUTO) 32.9 % (21-51); MEAN CORPUSCULAR HEMOGLOBIN 31.2 PG (27.0-31.0); MEAN CORPUSCULAR HGB CONC 33.5 g/dL (33.0-36.5); MEAN CORPUSCULAR VOLUME 93.1 FL (78-98); MEAN PLATELET VOLUME 7.7 FL (7.4-10.4); MONOCYTES # (AUTO) 0.6 X10'3 (0-0.9); MONOCYTES % (AUTO) 8.5 % (2-12); NEUTROPHILS # (AUTO) 3.8 X10'3 (1.8-7.7); PLATELET COUNT 281 X10'3 (140-440); RED BLOOD COUNT 4.13 X10'6 (4.20-5.60); RED CELL DISTRIBUTION WIDTH 14.6 % (11.5-14.5); WHITE BLOOD COUNT 7.5 X10'3 (4.5-11.0)
[2024-08-07 08:38] LABS: ALANINE AMINOTRANSFERASE 20 U/L (12-78); ALBUMIN 2.8 G/DL (3.4-5.0); ALBUMIN/GLOBULIN RATIO 0.8 (1.1-1.5); ALKALINE PHOSPHATASE 73 IU/L (46-116); ANION GAP 9 (8-16); ASPARTATE AMINO TRANSFERASE 28 U/L (10-37); BILIRUBIN,TOTAL 0.5 MG/DL (0.1-1.0); BLOOD UREA NITROGEN 9 MG/DL (7-18); BUN/CREATININE RATIO 11.7 (10.0-20.0); C-REACTIVE PROTEIN 3.15 MG/DL (0.0-0.5); CALCIUM 8.6 MG/DL (8.5-10.1); CHLORIDE 111 MMOL/L (99-107); CREATININE 0.77 MG/DL (0.40-0.90); GLUCOSE 90 MG/DL (70-104); MAGNESIUM 1.9 MG/DL (1.5-2.4); POTASSIUM 3.5 MMOL/L (3.5-5.1); SODIUM 146 MMOL/L (135-145); TOTAL CARBON DIOXIDE 26.3 MMOL/L (24-32); TOTAL PROTEIN 6.2 G/DL (6.4-8.2); eCRCL 42 ML/MIN; eGFR 72 ML/MIN
[2024-08-07 08:50] VITALS: BP_SYST 146; PULSE 72
[2024-08-07] MEDS ORDERED: VANC1VIA38 PO (11:20)
== END 2024-08-07 12:20 | disposition home or self-care (01) | DRG 872 ==
LOC: ER 10:40 → ED HOLD 13:59 → PCU 3S 16:50
PROVIDERS: ADMIT Nurse Practitioner Family; ATTEND Nurse Practitioner Family
PROC: BW211ZZ Computerized Tomography (CT Scan) of Abdomen and Pelvis using Low Osmolar Contrast (ICD-10-PCS; principal; 2024-08-05)
DX: A41.9 Sepsis, unspecified organism (principal); A09 Infectious gastroenteritis and colitis, unspecified; J44.1 Chronic obstructive pulmonary disease with (acute) exacerbation; E78.00 Pure hypercholesterolemia, unspecified; I10 Essential (primary) hypertension; I25.10 Atherosclerotic heart disease of native coronary artery without angina pectoris; K21.9 Gastro-esophageal reflux disease without esophagitis; Z79.01 Long term (current) use of anticoagulants; Z79.51 Long term (current) use of inhaled steroids; Z79.899 Other long term (current) drug therapy; Z85.3 Personal history of malignant neoplasm of breast; Z87.891 Personal history of nicotine dependence; Z95.1 Presence of aortocoronary bypass graft; Z90.49 Acquired absence of other specified parts of digestive tract
CPT/HCPCS: 36415; 74177; 80053; 83605; 83735; 83880; 84145; 85025; 86140; 87040; 87081; 87324; 87449; 93005; 93306; 94760; 97116; 97161; 99291; A6449; G0378; J3490; J7030; Q9967